=== PATIENT | male | born 1975 | race African-American/Black ===

== ENCOUNTER 2020-05-17 13:33 | Inpatient (IN) | payer MEDICAID ==
[~2020-05-17] VITALS: Ht 172.7 cm; Wt 113.5 kg
[~2020-05-17 13:33] MED LIST: ASPI81CH43 PO; CAR125T PO; CLON0.5T3 PO; COLC1TAB3 PO; ENAL2.5T11 PO; FURO1TAB33 PO; NOR10T PO; SPIR25TA88 PO
[2020-05-17] MEDS ORDERED: ONDANSETRON HCL 4 MG/2 ML VIAL IV ONE (14:00)
[2020-05-17] MEDS ORDERED: MORPHINE SULFATE 4 MG/ML SYR/VIAL IV ONE (14:00)
[2020-05-17] MEDS ORDERED: ASPirin 81 mg TAB PO ONE (14:00)
[2020-05-17 14:14] LABS: Basophils # (auto) 0.1 10 ^3/uL (0-0.2); Basophils % (auto) 0.8 % (0.0-2.0); Eosinophils # (auto) 0 10 ^3/uL (0-0.8); Eosinophils % (auto) 0.5 % (0.0-7.0); Hematocrit 40.2 % (41.0-53.0); Hemoglobin 13.5 g/dL (13.5-17.5); Lymphocytes # (auto) 1.9 10 ^3/uL (0.4-5.4); Lymphocytes % (auto) 21.4 % (10.0-50.0); Mean Corpuscular Hemoglobin 30.9 pg (28.0-32.0); Mean Corpuscular Hgb Conc. 33.5 g/dL (32.0-36.0); Mean Corpuscular Volume 92.2 fL (80.0-100.0); Monocytes # (auto) 0.4 10 ^3/uL (0-1.3); Monocytes % (auto) 4.8 % (0.0-12.0); Neutrophils # (auto) 6.3 10 ^3/uL (1.6-8.6); Neutrophils % (auto) 72.5 % (37.0-80.0); Platelet Count (auto) 276 10^3/uL (140-450); Red Blood Cells 4.36 10^6/uL (4.5-5.90); Red Cell Distribution Width 12.6 % (11.8-14.3); White Blood Cell 8.7 10^3/uL (4.4-10.8)
[2020-05-17 14:48] LABS: Albumin 4.3 g/dL (3.4-5.0); Anion Gap 7 (5-15); BUN/Creatinine Ratio 9.1; Blood Urea Nitrogen 10 mg/dL (7-18); Calcium 9.1 mg/dL (8.5-10.1); Carbon Dioxide 26 mmol/L (21-32); Chloride 105 mmol/L (98-107); GFR African American 94 mL/min; GFR Non-African American 77 mL/min; Glucose 131 mg/dL (74-106); Potassium 3.7 mmol/L (3.5-5.1); Sodium 138 mmol/L (136-145)
[2020-05-17 15:05] LABS: Alanine Aminotransferase 26 U/L (16-61); Alkaline Phosphatase 68 U/L (45-117); Aspartate Aminotransferase 15 U/L (15-37); Bilirubin, Total 0.7 mg/dL (0.2-1.0)
[2020-05-17] MEDS ORDERED: MORPHINE SULF INJ 2 MG/ML SYRINGE 1ML IV PRN ×2 (15:30→16:00)
[2020-05-17] MEDS ORDERED: NITROGLYCERIN 0.4 MG SL TAB SL PRN (15:30)
[2020-05-17] MEDS ORDERED: ONDANSETRON HCL 4 MG/2 ML VIAL IV PRN (16:00)
[2020-05-17] MEDS ORDERED: LACTULOSE 20Gm/30ML SOLN PO PRN (16:00)
[2020-05-17] MEDS ORDERED: TEMAZEPAM 15 MG CAP PO PRN (16:00)
[2020-05-17] MEDS ORDERED: ALBUTEROL SULF 2.5 MG/0.5ML(0.5%) NEB SOLN NEB PRN (16:00)
[2020-05-17] MEDS ORDERED: ACETAMINOPHEN 500 MG TAB PO PRN (16:00)
[2020-05-17] MEDS ORDERED: DEXTROSE (50%) 50ML SYRG IV PRN (16:00)
[2020-05-17] MEDS ORDERED: traMADol HCL 50 MG TAB PO PRN (16:00)
[2020-05-17] MEDS: DOXYCYCLINE 100MG/250ML 250 ML IV SCH (16:11)
[2020-05-17] MEDS ORDERED: SIMV-8 PO (16:41)
[2020-05-17] MEDS ORDERED: TRAM50TA2 PO (16:41)
[2020-05-17] MEDS ORDERED: HYDR-392 PO (16:41)
[2020-05-17 18:00] VITALS: BP 149/89
[2020-05-17] MEDS: ACCU-CHEK COMFORT CURVE STRIP VI SCH ×2 (18:19→22:00)
[2020-05-17 19:13] LABS: CRP High Sensitivity 0.07 mg/dL (< 0.3)
[2020-05-17 21:36] VITALS: BP 123/71
[2020-05-17] MEDS: SODIUM CHLOR 0.9% PF (SALINE LOCK) 10ML VIAL/SYR IV SCH (22:00)
[2020-05-17] MEDS ORDERED: ATORVASTATIN 20 MG TAB PO SCH (22:00)
[2020-05-18] MEDS: CARVEDILOL 3.125 MG TAB PO SCH ×2 (00:05→09:18)
[2020-05-18 01:12] VITALS: BP 123/71
[2020-05-18] MEDS: DOXYCYCLINE 100MG/250ML 250 ML IV SCH (04:13)
[2020-05-18 04:58] VITALS: BP 118/65
[2020-05-18] MEDS: SODIUM CHLOR 0.9% PF (SALINE LOCK) 10ML VIAL/SYR IV SCH (05:19)
[2020-05-18] MEDS: ACCU-CHEK COMFORT CURVE STRIP VI SCH ×2 (05:59→12:04)
[2020-05-18 07:03] LABS: Cholesterol 192 mg/dL (< 200); HDL Cholesterol 40 mg/dL (40-59); LDL Cholesterol 144 mg/dL (< 100); Triglycerides 84 mg/dL (< 150)
[2020-05-18 09:00] VITALS: BP 117/69
[2020-05-18] MEDS ORDERED: NITROGLYCERIN 0.2MG/HR TOPICAL PATCH TD SCH (10:00)
[2020-05-18] MEDS ORDERED: ASPirin 81 mg TAB PO SCH (10:00)
[2020-05-18] MEDS ORDERED: ENOXAPARIN SOD 40 MG/0.4 ML SYRINGE SC SCH (10:00)
[2020-05-18] MEDS ORDERED: ENALAPRIL MALEATE 10 MG TAB PO SCH (10:00)
[2020-05-18 12:49] VITALS: BP 118/80
[2020-05-18 14:34] VITALS: BP 118/80
== END 2020-05-18 15:20 | disposition home or self-care (01) | DRG 145 ==
LOC: ER 13:33 → TELE 13:34 → TELE-CENTR 17:52
PROVIDERS: ADMIT Internal Medicine; ATTEND Internal Medicine
DX: R07.81 Pleurodynia (principal); I42.0 Dilated cardiomyopathy; I11.0 Hypertensive heart disease with heart failure; I50.42 Chronic combined systolic (congestive) and diastolic (congestive) heart failure; J98.11 Atelectasis; R73.9 Hyperglycemia, unspecified; E78.5 Hyperlipidemia, unspecified; Z68.38 Body mass index [BMI] 38.0-38.9, adult; G89.29 Other chronic pain; E66.9 Obesity, unspecified; J40 Bronchitis, not specified as acute or chronic; Z82.49 Family history of ischemic heart disease and other diseases of the circulatory system; Z87.891 Personal history of nicotine dependence; Z95.1 Presence of aortocoronary bypass graft; Z79.899 Other long term (current) drug therapy
CPT/HCPCS: 36415; 71045; 71046; 80053; 80061; 82550; 82962; 83036; 83735; 83880; 84484; 85025; 85379; 85652; 86141; 93005; G0378; J2405; J3490